=== PATIENT | female | born 1965 | race Caucasian/White ===

== ENCOUNTER 2018-01-21 16:10 | Inpatient (IN) | payer MEDICARE ==
[~2018-01-21] VITALS: Ht 157.5 cm; Wt 72.1 kg
[2018-01-21 17:04] LABS: BASOPHILS % (AUTO) 1.4 % (0.0-2.0); EOSINOPHILS % (AUTO) 1.3 % (1.0-6.0); HEMATOCRIT 37.3 % (36-46); HEMOGLOBIN 12.4 g/dL (12.0-16.0); LYMPHOCYTES # (AUTO) 4.4 K/uL (1.0-4.8); LYMPHOCYTES % (AUTO) 46.5 % (22.0-44.0); MEAN CORPUSCULAR HEMOGLOBIN 32.9 pg (26.0-34.0); MEAN CORPUSCULAR HGB CONC 33.2 G/dL (31.0-37.0); MEAN CORPUSCULAR VOLUME 99 fL (80-100); MONOCYTES # (AUTO) 0.4 K/uL (0.1-1.0); MONOCYTES % (AUTO) 4.5 % (2.0-9.0); NEUTROPHILS # (AUTO) 4.4 K/uL (1.8-7.7); NEUTROPHILS % (AUTO) 46.3 % (40.0-70.0); PLATELET COUNT (AUTO) 462 K/uL (150-450); RED BLOOD CELL COUNT(AUTO) 3.77 MIL/uL (4.00-5.20); RED CELL DISTRIBUTION WIDTH 17.3 % (11.5-14.5)
[2018-01-21 17:21] LABS: ANION GAP 8 mmol/L (8-16); CALCIUM, TOTAL 8.5 mg/dL (8.8-10.5); CARBON DIOXIDE 27 mmol/L (22-29); CHLORIDE 104 mmol/L (98-107); CREATININE 0.89 mg/dL (0.60-1.30); GLOMERULAR FILTR. RATE CALC > 60 mL/min (>60); GLUCOSE,RANDOM 73 mg/dL (70-110); POTASSIUM 4.1 mmol/L (3.5-5.1); SALICYLATE < 2.8 mg/dL (2.8-20.0); SODIUM SERUM 139 mmol/L (136-145); UREA NITROGEN, BLOOD 11 mg/dL (7-18)
[2018-01-21 17:27] LABS: ALANINE AMINOTRANSFERASE 79 U/L (12-78); ALBUMIN 3.7 g/dL (3.4-5.0); ALKALINE PHOSPHATASE 102 U/L (46-116); ASPARTATE AMINOTRANSFERASE 99 U/L (15-37); BILIRUBIN,TOTAL 0.4 mg/dL (0.1-1.0); LIPASE 171 U/L (73-393); TOTAL PROTEIN, SERUM 7.1 g/dL (6.4-8.2)
[2018-01-21 17:33] LABS: AMPHET/METH SCREEN,URINE NEGATIVE (NEGATIVE); BARBITURATE SCREEN, URINE NEGATIVE (NEGATIVE); BENZODIAZEPINES SCREEN,URINE NEGATIVE (NEGATIVE); CANNABINOID SCREEN,URINE NEGATIVE (NEGATIVE); COCAINE SCREEN,URINE NEGATIVE (NEGATIVE); METHADONE SCREEN, URINE NEGATIVE (NEGATIVE); OPIATE SCREEN,URINE NEGATIVE (NEGATIVE); PHENCYCLIDINE SCREEN,URINE NEGATIVE (NEGATIVE)
[2018-01-21 17:39] LABS: ACETAMINOPHEN < 2 mcg/mL (10-30)
[2018-01-21 17:43] LABS: APPEARANCE,URINE CLEAR (CLEAR); BILIRUBIN,URINE NEGATIVE (NEGATIVE); GLUCOSE, URINE (UA) NEGATIVE (NEGATIVE); KETONES,URINE NEGATIVE (NEGATIVE); LEUKOCYTE ESTERASE ,URINE SMALL (NEGATIVE); NITRATE,URINE NEGATIVE (NEGATIVE); OCCULT BLOOD,URINE NEGATIVE (NEGATIVE); PROTEIN,URINE NEGATIVE (NEGATIVE); UROBILINOGEN,URINE 0.2 mg/dL (<=1.0)
[2018-01-21 17:55] LABS: RBC,URINE None Seen /HPF (0-2)
[2018-01-21 17:56] LABS: BACTERIA,URINE Few /HPF (None Seen); SQUAMOUS EPITHELIAL CELL,UR Few /LPF (None Seen); YEAST,URINE Rare /HPF (None Seen)
[2018-01-21] MEDS ORDERED: ONDA4 PO (18:42)
[2018-01-21] MEDS ORDERED: TRAZ-220 PO (18:42)
[2018-01-21] MEDS ORDERED: QUET50XR PO (18:42)
[2018-01-21] MEDS ORDERED: LIDO700A15 TP (18:42)
[2018-01-21] MEDS ORDERED: METO25XL PO (18:42)
[2018-01-21] MEDS ORDERED: ZOLPIDEM TARTRATE 10 MG TABLET PO PRN (20:30)
[2018-01-21] MEDS ORDERED: HALOPERIDOL 5 MG TABLET PO PRN (20:30)
[2018-01-21 22:14] VITALS: BP 116/76
[2018-01-22] VITALS (9 sets, daily range): BP systolic 121–152; BP diastolic 72–87
[2018-01-22] MEDS: NICOTINE 21 MG/24 HOUR PATCH TD SCH (08:53)
[2018-01-22] MEDS ORDERED: LOPERAMIDE HCL 2 MG CAPSULE PO PRN (14:45)
[2018-01-22] MEDS ORDERED: MAG HYDROX/AL HYDROX/SIMETH ES 30 ML SUSPENSION UDCUP PO PRN (14:45)
[2018-01-22] MEDS ORDERED: PETROLATUM,WHITE 71 GM JELLY TP PRN (14:45)
[2018-01-22] MEDS ORDERED: ONDANSETRON HCL 4 MG TABLET PO PRN (14:45)
[2018-01-22] MEDS ORDERED: ALBUTEROL SULFATE HFA 90 MCG/PUFF 8 GM INHALER IH PRN (14:45)
[2018-01-22] MEDS ORDERED: BACITRACIN 28.4 GM OINTMENT TP PRN (14:45)
[2018-01-22] MEDS ORDERED: CloNIDine HCL 0.1 MG TABLET PO PRN (14:45)
[2018-01-22] MEDS ORDERED: MAGNESIUM HYDROXIDE SUSPENSION 30 ML UDCUP PO PRN (14:45)
[2018-01-22] MEDS ORDERED: ACETAMINOPHEN 325 MG TABLET PO PRN (14:45)
[2018-01-22] MEDS ORDERED: BENZOCAINE/MENTHOL LOZENGE MM PRN (14:45)
[2018-01-22] MEDS: IBUPROFEN 600 MG TABLET PO PRN (16:19)
[2018-01-22] MEDS ORDERED: DICYCLOMINE HCL 20 MG TABLET PO SCH (17:00)
[2018-01-22] MEDS: GABAPENTIN 300 MG CAPSULE PO SCH (19:34)
[2018-01-22] MEDS: TraZODone HCL 100 MG TABLET PO SCH (21:32)
[2018-01-22] MEDS: QUEtiapine FUMARATE 100 MG TABLET PO SCH (21:32)
[2018-01-22] MEDS: DICYCLOMINE HCL 20 MG TABLET PO SCH (21:33)
[2018-01-23 01:09] VITALS: BP 126/80
[2018-01-23 05:52] VITALS: BP 124/81
[2018-01-23] MEDS: DICYCLOMINE HCL 20 MG TABLET PO SCH ×3 (06:29→16:34)
[2018-01-23 06:30] VITALS: BP 117/71
[2018-01-23] MEDS: IBUPROFEN 600 MG TABLET PO PRN (06:33)
[2018-01-23] MEDS: NICOTINE 21 MG/24 HOUR PATCH TD SCH (08:08)
[2018-01-23] MEDS: GABAPENTIN 300 MG CAPSULE PO SCH ×3 (08:08→16:34)
[2018-01-23] MEDS: ASPIRIN 81 MG EC TABLET PO SCH (08:08)
[2018-01-23 08:18] VITALS: BP 121/76
[2018-01-23 08:20] VITALS: BP 121/76
[2018-01-23] MEDS ORDERED: OMEPRAZOLE 20 MG CAPSULE PO PRN (09:00)
[2018-01-23] MEDS ORDERED: DOCUSATE SODIUM 100 MG CAPSULE PO PRN (09:00)
[2018-01-23] MEDS ORDERED: OMEPRAZOLE 20 MG CAPSULE PO SCH (09:00)
[2018-01-23] MEDS ORDERED: DOCUSATE SODIUM 100 MG CAPSULE PO SCH (09:00)
[2018-01-23 16:11] VITALS: BP 136/81
[2018-01-23] MEDS: QUEtiapine FUMARATE 100 MG TABLET PO SCH (20:36)
[2018-01-23] MEDS: TraZODone HCL 100 MG TABLET PO SCH (20:36)
[2018-01-24 00:08] VITALS: BP 110/60
[2018-01-24 05:45] VITALS: BP 114/74
[2018-01-24] MEDS: IBUPROFEN 600 MG TABLET PO PRN ×2 (05:46→12:20)
[2018-01-24] MEDS: DICYCLOMINE HCL 20 MG TABLET PO SCH ×3 (06:36→16:30)
[2018-01-24 08:17] VITALS: BP 100/73
[2018-01-24] MEDS: GABAPENTIN 300 MG CAPSULE PO SCH ×3 (08:17→16:31)
[2018-01-24] MEDS: ASPIRIN 81 MG EC TABLET PO SCH (08:17)
[2018-01-24] MEDS: NICOTINE 21 MG/24 HOUR PATCH TD SCH (08:17)
[2018-01-24 08:20] VITALS: BP 100/73
[2018-01-24] MEDS: LORazepam 2 MG TABLET PO PRN (10:51)
[2018-01-24 12:20] VITALS: BP 114/74
[2018-01-24 16:06] VITALS: BP 117/77
[2018-01-24] MEDS: QUEtiapine FUMARATE 100 MG TABLET PO SCH (20:39)
[2018-01-24] MEDS: TraZODone HCL 100 MG TABLET PO SCH (20:39)
[2018-01-25 05:17] VITALS: BP 125/79
[2018-01-25 06:26] VITALS: BP 121/72
[2018-01-25] MEDS: IBUPROFEN 600 MG TABLET PO PRN ×2 (06:27→18:48)
[2018-01-25] MEDS: DICYCLOMINE HCL 20 MG TABLET PO SCH ×3 (06:31→16:31)
[2018-01-25 08:09] VITALS: BP 119/66
[2018-01-25] MEDS: GABAPENTIN 300 MG CAPSULE PO SCH ×3 (08:37→16:31)
[2018-01-25] MEDS: ASPIRIN 81 MG EC TABLET PO SCH (08:37)
[2018-01-25] MEDS: NICOTINE 21 MG/24 HOUR PATCH TD SCH (08:38)
[2018-01-25 09:13] VITALS: BP 119/66
[2018-01-25] MEDS: LORazepam 2 MG TABLET PO PRN (12:17)
[2018-01-25 16:08] VITALS: BP 117/62
[2018-01-25 18:49] VITALS: BP 116/69
[2018-01-25] MEDS: TraZODone HCL 100 MG TABLET PO SCH (20:30)
[2018-01-25] MEDS: QUEtiapine FUMARATE 100 MG TABLET PO SCH (20:30)
[2018-01-26] MEDS ORDERED: ASPI-1146 PO (05:04)
[2018-01-26] MEDS ORDERED: NICO-704 TD (05:04)
[2018-01-26] MEDS ORDERED: QUET100T PO (05:04)
[2018-01-26] MEDS ORDERED: DICY20 PO (05:04)
[2018-01-26] MEDS ORDERED: TRAZ-220 PO (05:04)
[2018-01-26] MEDS ORDERED: GABA-531 PO (05:04)
[2018-01-26 05:53] VITALS: BP 120/81
[2018-01-26] MEDS: IBUPROFEN 600 MG TABLET PO PRN (05:55)
[2018-01-26] MEDS: DICYCLOMINE HCL 20 MG TABLET PO SCH ×2 (06:31→10:57)
[2018-01-26] MEDS: ASPIRIN 81 MG EC TABLET PO SCH (08:02)
[2018-01-26] MEDS: NICOTINE 21 MG/24 HOUR PATCH TD SCH (08:03)
[2018-01-26] MEDS: GABAPENTIN 300 MG CAPSULE PO SCH ×2 (08:03→12:41)
[2018-01-26 08:26] VITALS: BP 120/79
[2018-01-26] MEDS ORDERED: ASPI-1182 PO (09:48)
== END 2018-01-26 13:25 | disposition home or self-care (01) | DRG 885 ==
LOC: EMS 16:11 → B2X 21:39 → EMS 21:41
PROVIDERS: ADMIT Psychiatry & Neurology Psychiatry; ATTEND Psychiatry & Neurology Psychiatry
DX: F25.9 Schizoaffective disorder, unspecified (principal); K86.1 Other chronic pancreatitis; E83.51 Hypocalcemia; F32.9 Major depressive disorder, single episode, unspecified; F41.9 Anxiety disorder, unspecified; G47.00 Insomnia, unspecified; K58.9 Irritable bowel syndrome, unspecified; T50.902A Poisoning by unspecified drugs, medicaments and biological substances, intentional self-harm, initial encounter; Z87.891 Personal history of nicotine dependence; Z88.8 Allergy status to other drugs, medicaments and biological substances; Z72.89 Other problems related to lifestyle; Z71.41 Alcohol abuse counseling and surveillance of alcoholic; Z28.21 Immunization not carried out because of patient refusal; Z79.899 Other long term (current) drug therapy
CPT/HCPCS: 80074; 80320; 82693; 93005; G0480; G0481

== ENCOUNTER 2018-02-25 14:06 | Inpatient (IN) | payer MEDICARE ==
[~2018-02-25] VITALS: Ht 167.6 cm; Wt 90.9 kg
[~2018-02-25 14:06] MED LIST: ASPI-1182 PO; DICY20 PO; GABA-531 PO; QUET100T PO; TRAZ-220 PO
[2018-02-25 15:11] LABS: EOSINOPHILS % (AUTO) 2.1 % (1.0-6.0); HEMATOCRIT 43.9 % (36-46); HEMOGLOBIN 14.6 g/dL (12.0-16.0); LYMPHOCYTES # (AUTO) 4.7 K/uL (1.0-4.8); LYMPHOCYTES % (AUTO) 47.9 % (22.0-44.0); MEAN CORPUSCULAR HEMOGLOBIN 30.7 pg (26.0-34.0); MEAN CORPUSCULAR HGB CONC 33.4 G/dL (31.0-37.0); MEAN CORPUSCULAR VOLUME 92 fL (80-100); MONOCYTES # (AUTO) 0.3 K/uL (0.1-1.0); MONOCYTES % (AUTO) 3.6 % (2.0-9.0); NEUTROPHILS # (AUTO) 4.4 K/uL (1.8-7.7); NEUTROPHILS % (AUTO) 45.4 % (40.0-70.0); PLATELET COUNT (AUTO) 351 K/uL (150-450); RED BLOOD CELL COUNT(AUTO) 4.77 MIL/uL (4.00-5.20); RED CELL DISTRIBUTION WIDTH 16.8 % (11.5-14.5)
[2018-02-25 15:26] LABS: ALANINE AMINOTRANSFERASE 57 U/L (12-78); ALBUMIN 4.1 g/dL (3.4-5.0); ALKALINE PHOSPHATASE 106 U/L (46-116); ANION GAP 15 mmol/L (8-16); ASPARTATE AMINOTRANSFERASE 48 U/L (15-37); BILIRUBIN,TOTAL 0.4 mg/dL (0.1-1.0); CALCIUM, TOTAL 9.2 mg/dL (8.8-10.5); CARBON DIOXIDE 25 mmol/L (22-29); CHLORIDE 101 mmol/L (98-107); GLOMERULAR FILTR. RATE CALC > 60 mL/min (>60); GLUCOSE,RANDOM 116 mg/dL (70-110); POTASSIUM 3.2 mmol/L (3.5-5.1); SODIUM SERUM 141 mmol/L (136-145); TOTAL PROTEIN, SERUM 7.8 g/dL (6.4-8.2); UREA NITROGEN, BLOOD 8 mg/dL (7-18)
[2018-02-25] MEDS ORDERED: ZOLPIDEM TARTRATE 10 MG TABLET PO PRN (16:15)
[2018-02-25] MEDS ORDERED: HALOPERIDOL 5 MG TABLET PO PRN (16:15)
[2018-02-26] MEDS ORDERED: POTASSIUM CHLORIDE 20 MEQ ER TABLET PO ONE (00:45)
[2018-02-26 01:13] VITALS: BP 111/67
[2018-02-26 08:05] VITALS: BP 124/76
[2018-02-26 08:16] LABS: CHOL/HDL RATIO 1.7 (3.9-5.7)
[2018-02-26] MEDS ORDERED: CYCLOBENZAPRINE HCL 10 MG TABLET PO PRN ×2 (15:30→17:15)
[2018-02-26 16:22] VITALS: BP 107/63
[2018-02-26] MEDS ORDERED: CloNIDine HCL 0.1 MG TABLET PO PRN (17:15)
[2018-02-26] MEDS ORDERED: ONDANSETRON HCL 4 MG TABLET PO PRN (17:15)
[2018-02-26] MEDS ORDERED: DICYCLOMINE HCL 20 MG TABLET PO SCH (17:15)
[2018-02-26] MEDS ORDERED: AMYLASE/LIPASE/PROTEASE 60/12/38 MU DR CAPSULE PO SCH (17:15)
[2018-02-26] MEDS ORDERED: GABAPENTIN 300 MG CAPSULE PO SCH (17:15)
[2018-02-26] MEDS ORDERED: ACETAMINOPHEN 325 MG TABLET PO PRN (17:15)
[2018-02-26] MEDS ORDERED: PETROLATUM,WHITE 71 GM JELLY TP PRN (17:15)
[2018-02-26] MEDS ORDERED: BENZOCAINE/MENTHOL LOZENGE MM PRN (17:15)
[2018-02-26] MEDS ORDERED: IBUPROFEN 800 MG TABLET PO PRN (17:15)
[2018-02-26] MEDS ORDERED: LOPERAMIDE HCL 2 MG CAPSULE PO PRN (17:15)
[2018-02-26] MEDS ORDERED: MAG HYDROX/AL HYDROX/SIMETH ES 30 ML SUSPENSION UDCUP PO PRN (17:15)
[2018-02-26] MEDS ORDERED: ALBUTEROL SULFATE HFA 90 MCG/PUFF 8 GM INHALER IH PRN (17:15)
[2018-02-26] MEDS ORDERED: BACITRACIN 28.4 GM OINTMENT TP PRN (17:15)
[2018-02-26] MEDS ORDERED: MAGNESIUM HYDROXIDE SUSPENSION 30 ML UDCUP PO PRN (17:15)
[2018-02-26] MEDS ORDERED: -LIDODERM PATCH NOTE- MISC SCH (21:00)
[2018-02-27] MEDS: AMYLASE/LIPASE/PROTEASE 60/12/38 MU DR CAPSULE PO SCH (07:10)
[2018-02-27] MEDS: DICYCLOMINE HCL 20 MG TABLET PO SCH ×3 (07:10→16:22)
[2018-02-27 08:05] VITALS: BP 126/86
[2018-02-27] MEDS: OMEPRAZOLE 20 MG CAPSULE PO SCH (08:13)
[2018-02-27] MEDS: ASPIRIN 81 MG EC TABLET PO SCH (08:13)
[2018-02-27] MEDS: METOPROLOL TARTRATE 25 MG TABLET PO SCH (08:15)
[2018-02-27] MEDS: LIDOCAINE 5% TRANSDERMAL PATCH TD SCH (08:19)
[2018-02-27] MEDS ORDERED: METOPROLOL TARTRATE 25 MG TABLET PO SCH (09:00)
[2018-02-27] MEDS ORDERED: METOPROLOL SUCCINATE 25 MG ER TABLET PO SCH (09:00)
[2018-02-27] MEDS ORDERED: AMYLASE/LIPASE/PROTEASE 60/12/38 MU DR CAPSULE PO SCH (09:00)
[2018-02-27] MEDS: DOCUSATE SODIUM 100 MG CAPSULE PO SCH (09:00)
[2018-02-27] MEDS: GABAPENTIN 300 MG CAPSULE PO SCH ×2 (11:22→16:21)
[2018-02-27] MEDS: LORazepam 2 MG TABLET PO PRN (14:42)
[2018-02-27 17:48] VITALS: BP 121/65
[2018-02-27] MEDS ORDERED: -LIDODERM PATCH NOTE- MISC SCH (21:00)
[2018-02-27] MEDS ORDERED: QUEtiapine FUMARATE 25 MG TABLET PO SCH (21:00)
[2018-02-27] MEDS ORDERED: TraZODone HCL 50 MG TABLET PO SCH (21:00)
[2018-02-28] MEDS: AMYLASE/LIPASE/PROTEASE 60/12/38 MU DR CAPSULE PO SCH (06:48)
[2018-02-28] MEDS: DICYCLOMINE HCL 20 MG TABLET PO SCH ×2 (06:48→11:27)
[2018-02-28] MEDS: GABAPENTIN 300 MG CAPSULE PO SCH ×2 (06:49→11:27)
[2018-02-28] MEDS: OMEPRAZOLE 20 MG CAPSULE PO SCH (08:15)
[2018-02-28] MEDS: ASPIRIN 81 MG EC TABLET PO SCH (08:15)
[2018-02-28] MEDS: LIDOCAINE 5% TRANSDERMAL PATCH TD SCH (08:23)
[2018-02-28] MEDS: DOCUSATE SODIUM 100 MG CAPSULE PO SCH (08:23)
[2018-02-28 08:41] VITALS: BP 106/69
[2018-02-28] MEDS: LORazepam 2 MG TABLET PO PRN (08:52)
[2018-02-28] MEDS: METOPROLOL TARTRATE 25 MG TABLET PO SCH (09:00)
[2018-02-28] MEDS ORDERED: LIDO700A15 TD (10:43)
[2018-02-28] MEDS ORDERED: BUPR150SR PO (10:43)
[2018-02-28] MEDS ORDERED: DSS100 PO (10:43)
[2018-02-28] MEDS ORDERED: AMYL1CAP62 PO (10:43)
[2018-02-28] MEDS ORDERED: METO25 PO (10:43)
[2018-02-28] MEDS ORDERED: OMEP20 PO (10:43)
[2018-03-01] MEDS ORDERED: BuPROPion HCL 150 MG SR TABLET PO SCH (09:00)
== END 2018-02-28 16:45 | disposition home or self-care (01) | DRG 881 ==
LOC: EMS 14:08 → B2X 18:16 → 3EC 20:43
PROVIDERS: ADMIT Psychiatry & Neurology Psychiatry; ATTEND Psychiatry & Neurology Psychiatry
DX: F32.9 Major depressive disorder, single episode, unspecified (principal); R45.851 Suicidal ideations; E83.51 Hypocalcemia; F17.200 Nicotine dependence, unspecified, uncomplicated; F22 Delusional disorders; F41.9 Anxiety disorder, unspecified; G47.00 Insomnia, unspecified; K58.9 Irritable bowel syndrome, unspecified; Y90.8 Blood alcohol level of 240 mg/100 ml or more; Z91.011 Allergy to milk products; Z79.82 Long term (current) use of aspirin; Z79.899 Other long term (current) drug therapy; Z71.51 Drug abuse counseling and surveillance of drug abuser; Z72.89 Other problems related to lifestyle; F15.90 Other stimulant use, unspecified, uncomplicated
CPT/HCPCS: G0480